=== PATIENT | female | born 1955 | race African-American/Black ===

== ENCOUNTER 2021-05-03 17:08 | Emergency (ER) | payer BC, MEDICARE ==
[~2021-05-03] VITALS: Ht 172.7 cm; Wt 72.7 kg
[~2021-05-03 17:08] MED LIST: AMLO-187 PO; DULO30CA2 PO; HYDR50CA2 PO; INSU100I13 SQ; LOSA1TAB19 PO; METF10007 PO; MOXI3DRO18 LEFTEYE; MOXI3DRO18 RIGHTEYE; NEPA1.7D LEFTEYE; NEPA1.7D RIGHTEYE; PRED5DRO16 LEFTEYE; PRED5DRO16 RIGHTEYE
--- NOTE | 2021-05-03 17:54 | PHYS DOC ---
Past History Past Medical History: Diabetes, Hypertension, Other Additional Past Medical Histor: PERIPHERAL NEUROPATHY Past Surgical History: Hysterectomy, Other Additional Past Surgical Histo: TOE AMPUTATION Alcohol Use: None General Adult EDM: Chief Complaint: UPPER EXTREMITY INJURY HPI: HPI: ".. I got this pain in my RT shoulder..I was over at my son house... and the window was open.. and I think I got a chill in this Rt. shoulder..." Patient is a 65 year old femle who presents with above hx and complaints of upper right shoulder ext. pain . Patient denies any injury. Patient does have decreased range of motion due to pain. Does have sensation of the deltoid. Distal neurovascular intact. Distal neurovascular is equal to left hand. Patient is right-hand dominant. There is some crepitation with manual movement of shoulder. Patient denies any changes in meds. Patient does have some history of arthritis. Patient denies any overuse syndrome. Pt.follows with Dr. Rich Calzada. Review of Systems: Review of Systems: Constitutional: Denies fever or chills Eyes: Denies change in visual acuity HENT: Denies nasal congestion or sore throat Respiratory: Denies cough or shortness of breath Cardiovascular: Denies chest pain or edema GI: Denies abdominal pain, nausea, vomiting, bloody stools or diarrhea : Denies dysuria Musculoskeletal: Complains of right shoulder pain Integument: Denies rash Neurologic: Denies headache, focal weakness or sensory changes Endocrine: Denies polyuria or polydipsia Lymphatic: Denies swollen glands Psychiatric: Denies depression or anxiety Family History: Family History: Noncontributory to presentation Current Medications: Current Meds: See nursing for home meds Allergies: Allergies: Allergies Coded Allergies Type Severity Reaction Last Updated Verified No Known Drug Allergies 03/03/15 No Physical Exam: PE: Constitutional: Moderate acute distress, non-toxic appearance. [] HENT: Normocephalic, atraumatic, bilateral external ears normal, oropharynx moist, no oral exudates, nose normal. [] Eyes: PERRLA, EOMI, conjunctiva normal, no discharge. [] Neck: Normal range of motion, no tenderness, supple, no stridor. [] Cardiovascular:Heart rate regular rhythm, no murmur [] Lungs & Thorax: Bilateral breath sounds equal apex on auscultation [] Abdomen: Bowel sounds normal, soft, no tenderness, no masses, no pulsatile masses. [] Skin: Warm, dry, no erythema, no rash. [] Back: No tenderness, no CVA tenderness. [] Extremities: No tenderness, no cyanosis, no clubbing, ROM intact, no edema. [] Except right shoulder tenderness as per HPI Neurologic: Alert and oriented X 3, normal motor function, normal sensory function, no focal deficits noted. [] Psychologic: Affect anxious, judgement normal, mood normal. [] Current Patient Data: Vital Signs: Vital Signs Date Time Temp Pulse Resp B/P (MAP) Pulse Ox O2 Delivery O2 Flow Rate FiO2 05/03/21 17:20 98.0 86 16 131/56 (81) 97 EKG: EKG: [] Radiology/Procedures: Radiology/Procedures: [][address] [address] IMAGING REPORT Signed PATIENT: TRES PAZ ACCOUNT: [id number] : 07/30/1964 LOCATION: ER AGE: 56 SEX: F EXAM STATUS: REG ER ORD. PHYSICIAN: MIRZA HURTADO DO REASON: LLQ pain out of proportion to exam, OMNI 350, 100ml PROCEDURE: CT ANGIOGRAPHY ABD AND PELVIS EXAM: CT ANGIOGRAM ABDOMEN AND PELVIS WITH IV CONTRAST CLINICAL HISTORY: Reason: LLQ pain out of proportion to exam, OMNI 350, 100ml / Spl. Instructions: / History: . COMPARISON: 05/02/2021 TECHNIQUE:CT angiography of the abdomen and pelvis was performed after the administration of IV contrast during the arterial phase. Multiplanar reformatted images including 3-D/MIP reconstructions were generated. FINDINGS: CT ANGIOGRAM: The distal thoracic and abdominal aorta are normal in caliber. No evidence for aortic dissection. The celiac trunk, SMA and LANETTE are widely patent. Single bilateral renal arteries are widely patent. The common, internal and external iliac arteries are widely patent. LOWER CHEST: 3 mm left lower lobe lung nodule (series 5 image 25 is stable to 03/26/2020. Calcified granuloma right lower lobe. ABDOMEN AND PELVIS: Hepatic hypoattenuation, likely fatty liver. Liver measures 19 cm in craniocaudal dimension. Cholecystectomy clips are seen. No biliary ductal dilatation. Spleen is unremarkable. Pancreas is unremarkable. Symmetric nephrograms. No focal renal lesion. No hydronephrosis. No hydroureter. Bladder is unremarkable. Moderate colonic stool content is seen. No small or large bowel dilatation. No bowel obstruction. 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 Small fat-containing periumbilical hernias seen. Appendix is normal. No abdominal or pelvic ascites. Iliac chain lymphadenopathy, for example left external iliac lymph node measures 3.2 x 2 cm. There is been a hysterectomy. Symphysis pubis degenerative changes are seen. Changes of lower lumbar spine fusion are seen. No aggressive osseous lesion. Leftward curvature of the lumbar spine apex L3. IMPRESSION: 1. Aorta is grossly normal in caliber without aneurysm or dissection. 2. Pelvic lymphadenopathy, of uncertain clinical significance, possibly neoplastic/metastatic. Inflammatory process could also result in this appearance. 3. Hepatomegaly. Hepatic hypoattenuation, likely fatty liver. Electronically signed by: Moshe Mccarty MD (05/03/2021 7:31 PM) [facility] DICTATED AND SIGNED BY: MOSHE MCCARTY MD DATE: 05/03/211919 CC: MIRZA HURTADO DO; DAMIÁN FELIPE MD; ALICIA SHUKLA MD ~MTH0 0 Heart Score: C/O Chest Pain: N/A Risk Factors: Risk Factors: DM, Current or recent (<one month) smoker, HTN, HLP, family his tory of CAD, obesity. Risk Scores: Score 0 - 3: 2.5% MACE over next 6 weeks - Discharge Home Score 4 - 6: 20.3% MACE over next 6 weeks - Admit for Clinical Observation Score 7 - 10: 72.7% MACE over next 6 weeks - Early Invasive Strategies Course & Med Decision Making: Course & Med Decision Making Pertinent Labs and Imaging studies reviewed. (See chart for details) Patient take Tylenol and ibuprofen for pain. Moist heat packs. Range of motion activities. Attempt to increase range of motion. For marked pain may take Vicoprofen up to 4 times a day. Recommend follow-up with orthopedics and get a steroid injection to the right shoulder. Follow-up primary care. Return if any concerns. Impression: 1. Right shoulder pain 2. Right shoulder bursitis [] Dragon Disclaimer: Cristiane Disclaimer: This electronic medical record was generated, in whole or in part, using a voice recognition dictation system. Departure Departure: Referrals: VIVIANE CALZADA (PCP) Scripts Hydrocodone/Ibuprofen (HYDROCODONE-IBUPROFEN 7.5-200 ) 1 Each Tablet 1 TAB PO PRN Q6HRS PRN for PAIN, #30 TAB 0 Refills Prov: DAMIÁN FELIPE MD 05/03/21 Dragon Disclaimer This chart was dictated in whole or in part using Voice Recognition software in a busy, high-work load, and often noisy Emergency Department environment. It may contain unintended and wholly unrecognized errors or omissions. DAMIÁN FELIPE MD May 03, 2021 17:53
[2021-05-03] MEDS ORDERED: KETOROLAC 60 MG/2 ML VIAL. IM ONE (18:45)
--- NOTE | 2021-05-03 19:54 | RAD ---
EXAM: XR CHEST 2V 05/03/2021 6:03 PM CLINICAL INDICATION: Right shoulder chest pain, unknown injury COMPARISON: None TECHNIQUE: PA and lateral views of the chest FINDINGS: The cardiac silhouette is at the upper limit of normal size. Mediastinum is normal. Lungs are well-expanded and clear. No consolidation, pleural effusion, or pneumothorax. Pulmonary vascul arity is normal. The thoracic skeleton is intact. IMPRESSION: No acute cardiopulmonary abnormality. Electronically signed by: Venice Murphy MD (05/03/2021 7:51 PM) [id number]
--- NOTE | 2021-05-03 19:55 | RAD ---
EXAM: XR SHOULDER_RIGHT 2+ VIEWS 05/03/2021 6:03 PM CLINICAL INDICATION: Right shoulder pain COMPARISON: None TECHNIQUE: 3 views of the right shoulder FINDINGS: No acute fracture. Alignment is normal. No significant degenerative joint disease. Possibl e small amount of gas in the subacromial space on external rotation view. IMPRESSION: 1. No acute osseous abnormality. 2. Questionable small amount of soft tissue gas in the subacromial space seen on external rotation vi ew, nonspecific. Electronically signed by: Venice Murphy MD (05/03/2021 7:53 PM) [id number]
[2021-05-03] MEDS ORDERED: HYDR-1179 PO (20:10)
[2021-05-03 20:30] VITALS: BP 130/58
== END 2021-05-03 20:32 | disposition home or self-care (01) ==
LOC: ER 17:08
DX: M75.51 Bursitis of right shoulder (principal); R10.32 Left lower quadrant pain; E11.9 Type 2 diabetes mellitus without complications; I10 Essential (primary) hypertension; Z90.710 Acquired absence of both cervix and uterus; W22.8XXA Striking against or struck by other objects, initial encounter; Y93.89 Activity, other specified; Y92.89 Other specified places as the place of occurrence of the external cause; Y99.8 Other external cause status
CPT/HCPCS: 71046; 73030; 96372; 99284; J1885

== ENCOUNTER → 2021-09-21 | Outpatient (CLI) | payer MEDICARE ==
[~2021-09-21] MED LIST changes: +HYDR-1179 PO
--- NOTE | 2021-09-24 12:58 | RAD ---
INDICATION : Routine Screening. COMPARISON: Multiple priors including January 2017 TECHNIQUE: Standard mammogram screening views of the bilateral breasts were obtained with 3D tomosynt hesis. CAD was utilized. FINDINGS: The breasts are scattered density. Repeat demonstration of some benign-appearing partially obscured masses including at the right upper breast with at least some of these likely secondary to lymph node s. No definite new suspicious mass. IMPRESSION: BI-RADS Category 2: Benign findings. The patient was placed into the recall system with a suggested recall date for follow up imaging. Mammography is the most sensitive method for finding small breast cancers, but it does not detect the m all and is not a substitute for careful clinical examination. A negative mammogram does not negate a clinically suspicious finding and should not result in delay in biopsying a clinically suspicious abnormality. Electronically signed by: Terence Linn MD (09/24/2021 12:55 PM) [id number]
== END ==
LOC: MAMMO 08:27
PROVIDERS: ATTEND Family Medicine
DX: Z12.31 Encounter for screening mammogram for malignant neoplasm of breast (principal)
CPT/HCPCS: 77063; 77067